=== PATIENT | male | born 1955 | race Two or more races ===

== ENCOUNTER 2020-10-12 13:25 | Emergency (ER) | payer OTHER ==
[2020-10-12] MEDS ORDERED: CASIRIVIMAB/IMDEVIMAB 10 ML VIAL IV ONE (14:15)
[2020-10-12 15:38] VITALS: BP 120/85
== END 2020-10-12 16:12 | disposition home or self-care (01) ==
LOC: ER 14:25
DX: R05 Cough (principal); R06.02 Shortness of breath; U07.1 COVID-19; J45.909 Unspecified asthma, uncomplicated; Z86.73 Personal history of transient ischemic attack (TIA), and cerebral infarction without residual deficits
CPT/HCPCS: 99282